=== PATIENT | male | born 1970 | race Two or more races ===

== ENCOUNTER 2024-07-24 22:42 | Inpatient (IN) | payer OTHER ==
[~2024-07-24] VITALS: Ht 165.1 cm; Wt 118.2 kg
[2024-07-25 00:15] LABS: CALCIUM, TOTAL 8.8 mg/dL (8.8-10.5); CREATININE 1.26 mg/dL (0.60-1.30); POTASSIUM 3.9 mmol/L (3.5-5.1)
[2024-07-25 00:25] LABS: TROPONIN I-HIGH SENSITIVITY 10 ng/L (<76)
[2024-07-25 01:00] LABS: BASOPHILS % (AUTO) 0.9 % (0.0-2.0); EOSINOPHILS % (AUTO) 2.9 % (1.0-6.0); HEMATOCRIT 44.8 % (41-53); HEMOGLOBIN 14.9 g/dL (13.5-17.5); LYMPHOCYTES # (AUTO) 1.9 K/uL (1.0-4.8); LYMPHOCYTES % (AUTO) 25.5 % (22.0-44.0); MEAN CORPUSCULAR HEMOGLOBIN 28.8 pg (26.0-34.0); MEAN CORPUSCULAR HGB CONC 33.3 G/dL (31.0-37.0); MEAN CORPUSCULAR VOLUME 87 fL (80-100); MONOCYTES # (AUTO) 0.7 K/uL (0.1-1.0); MONOCYTES % (AUTO) 9.1 % (2.0-9.0); NEUTROPHILS # (AUTO) 4.5 K/uL (1.8-7.7); NEUTROPHILS % (AUTO) 61.6 % (40.0-70.0); PLATELET COUNT (AUTO) 191 K/uL (150-450); RED BLOOD CELL COUNT(AUTO) 5.17 MIL/uL (4.50-5.90); WHITE BLOOD COUNT (AUTO) 7.3 K/uL (4.5-11.0)
[2024-07-25] MEDS ORDERED: ZOLPIDEM TARTRATE 5 MG TABLET PO PRN (01:00)
[2024-07-25] MEDS ORDERED: ACETAMINOPHEN 325 MG TABLET PO PRN (01:00)
[2024-07-25] MEDS ORDERED: CloNIDine HCL 0.1 MG TABLET PO PRN (01:00)
[2024-07-25] MEDS: AmLODIPine BESYLATE 10 MG TABLET PO ONE (01:19)
[2024-07-25] MEDS: ASPIRIN 325 MG TABLET PO ONE (01:19)
[2024-07-25] MEDS: FUROSEMIDE 20 MG TABLET PO ONE (01:21)
[2024-07-25 02:52] VITALS: BP 139/107; PULSE 79; RESP 20; TEMP 97.9; O2SAT 97
[2024-07-25 03:00] VITALS: BP 139/107; PULSE 79; RESP 20; TEMP 97.9; O2SAT 97
[2024-07-25 06:05] LABS: APPEARANCE,URINE CLEAR (CLEAR); BILIRUBIN,URINE NEGATIVE (NEGATIVE); COLOR,URINE COLORLESS (YELLOW); GLUCOSE, URINE (UA) NEGATIVE (NEGATIVE); KETONES,URINE NEGATIVE (NEGATIVE); LEUKOCYTE ESTERASE ,URINE NEGATIVE (NEGATIVE); NITRATE,URINE NEGATIVE (NEGATIVE); OCCULT BLOOD,URINE NEGATIVE (NEGATIVE); PROTEIN,URINE NEGATIVE (NEGATIVE); SPECIFIC GRAVITIY, URINE 1.007 (1.003-1.030); UROBILINOGEN,URINE <=1.0 mg/dL (<=1.0)
[2024-07-25 06:13] LABS: AMPHET/METH SCREEN,URINE NEGATIVE (NEGATIVE); BARBITURATE SCREEN, URINE NEGATIVE (NEGATIVE); BENZODIAZEPINES SCREEN,URINE NEGATIVE (NEGATIVE); CANNABINOID SCREEN,URINE NEGATIVE (NEGATIVE); COCAINE SCREEN,URINE NEGATIVE (NEGATIVE); METHADONE SCREEN, URINE NEGATIVE (NEGATIVE); OPIATE SCREEN,URINE NEGATIVE (NEGATIVE); PHENCYCLIDINE SCREEN,URINE NEGATIVE (NEGATIVE)
[2024-07-25 06:21] LABS: ALCOHOL, URINE DRUG SCREEN NEGATIVE (NEGATIVE)
[2024-07-25 08:00] VITALS: BP 144/102; PULSE 90; RESP 18; TEMP 97.6; O2SAT 96
[2024-07-25 08:31] LABS: ALBUMIN 3.2 g/dL (3.4-5.0); BILIRUBIN,DIRECT 0.1 mg/dL (0.00-0.20); BILIRUBIN,TOTAL 0.7 mg/dL (0.1-1.0)
[2024-07-25] MEDS: FAMOTIDINE 20 MG TABLET PO SCH (08:41)
[2024-07-25] MEDS: HEPARIN SODIUM,PORCINE 5,000 UNITS/ML VIAL SQ SCH (08:42)
[2024-07-25] MEDS: AmLODIPine BESYLATE 5 MG TABLET PO SCH (08:45)
[2024-07-25 16:03] VITALS: BP 143/90; PULSE 90; RESP 18; TEMP 98; O2SAT 98
[2024-07-25 20:12] VITALS: BP 145/98; PULSE 91; RESP 18; TEMP 97.4; O2SAT 96
[2024-07-26 04:06] LABS: HEPATITIS C AB (EIA) Non Reactive (Non Reactive)
[2024-07-26 04:48] VITALS: BP 144/92; PULSE 86; RESP 18; TEMP 97.6; O2SAT 95
[2024-07-26 07:07] LABS: ANION GAP 8 mmol/L (8-16); CALCIUM, TOTAL 8.4 mg/dL (8.8-10.5); CARBON DIOXIDE 31 mmol/L (22-29); CHLORIDE 98 mmol/L (98-107); CREATININE 1.06 mg/dL (0.60-1.30); GLOMERULAR FILTR. RATE CALC > 60 mL/min (>60); GLUCOSE,RANDOM 111 mg/dL (70-110); POTASSIUM 3.1 mmol/L (3.5-5.1); SODIUM SERUM 137 mmol/L (136-145); UREA NITROGEN, BLOOD 16 mg/dL (7-18)
[2024-07-26 08:22] VITALS: BP 141/97; PULSE 88; RESP 18; TEMP 97.8; O2SAT 97
[2024-07-26] MEDS ORDERED: FUROSEMIDE 40 MG/4 ML VIAL IVP ONE (10:30)
[2024-07-26] MEDS ORDERED: MAGNESIUM OXIDE 400 MG TABLET PO PRN (10:30)
[2024-07-26] MEDS ORDERED: MAGNESIUM SULFATE 2 GM/WATER 50 ML IV PRN (10:30)
[2024-07-26] MEDS ORDERED: POTASSIUM CHL 10 MEQ/WATER 50 ML IV PRN (10:30)
[2024-07-26] MEDS ORDERED: MAGNESIUM SULFATE 4 GM/WATER 100 ML IV PRN (10:30)
[2024-07-26] MEDS: POTASSIUM CHLORIDE 20 MEQ ER TABLET PO PRN (11:27)
[2024-07-26] MEDS: MAGNESIUM HYDROXIDE SUSPENSION 30 ML UDCUP PO PRN (11:27)
[2024-07-26 11:32] LABS: ALBUMIN 3.5 g/dL (3.4-5.0)
[2024-07-26] MEDS: LACTULOSE 20 GM/30 ML SOLUTION UDCUP PO SCH (15:40)
[2024-07-26 20:04] VITALS: BP 144/89; PULSE 95; RESP 18; TEMP 98.2; O2SAT 95
[2024-07-26] MEDS ORDERED: FUROSEMIDE 20 MG/2 ML VIAL IVP SCH (21:00)
[2024-07-27 05:17] VITALS: BP 135/92; PULSE 76; RESP 18; TEMP 97.7; O2SAT 96
[2024-07-27 07:37] VITALS: BP 132/87; PULSE 92; RESP 20; TEMP 97.7; O2SAT 94
[2024-07-27] MEDS ORDERED: AMLO-258 PO (11:38)
== END 2024-07-27 20:02 | DRG 305 ==
LOC: EMS 22:42 → EDH 07-25 01:07 → 6S 07-25 02:34
PROVIDERS: ADMIT Internal Medicine; ATTEND Internal Medicine
DX: I10 Essential (primary) hypertension (principal); E87.6 Hypokalemia; K59.00 Constipation, unspecified; I25.10 Atherosclerotic heart disease of native coronary artery without angina pectoris
CPT/HCPCS: 71045; 80048; 80076; 80307; 81003; 82040; 83735; 83880; 84132; 84484; 85025; 86803; 87340; 93005; 93306; 99285; J1644; 36415-L1; 36415-TC